=== PATIENT | female | born 1980 | race Caucasian/White ===

== ENCOUNTER → 2019-10-18 | Outpatient (CLI) | payer BC ==
[~2019-10-18] MED LIST: GADOTERATE 7.5 MMOL/15ML VIAL. IVP ONE
[2019-10-18 08:19] LABS: BASO # 0.1 x10^3/uL (0.0-0.2); BASO % 1 % (0-3); EOS # 0.1 x10^3/uL (0.0-0.7); EOS % 1 % (0-3); HEMATOCRIT 42.2 % (36.0-47.0); HEMOGLOBIN 14.2 g/dL (12.0-15.5); LYMPH # 2.1 x10^3/uL (1.0-4.8); LYMPH % 21 % (24-48); MEAN CORPUSCULAR HEMOGLOBIN 32 pg (25-35); MEAN CORPUSCULAR HGB CONC 34 g/dL (31-37); MEAN CORPUSCULAR VOLUME 94 fL (79-100); MONO # 0.5 x10^3/uL (0.0-1.1); MONO % 5 % (0-9); NEUT # 7.5 x10^3/uL (1.8-7.7); NEUT % 73 % (31-73); PLATELET COUNT 219 x10^3/uL (140-400); RED BLOOD COUNT 4.51 x10^6/uL (3.50-5.40); RED CELL DISTRIBUTION WIDTH 13.2 % (11.5-14.5); WHITE BLOOD COUNT 10.4 x10^3/uL (4.0-11.0)
[2019-10-18 08:34] LABS: ALBUMIN/GLOBULIN RATIO 1.1 (1.0-1.7); CALCIUM 8.9 mg/dL (8.5-10.1); CREATININE 0.6 mg/dL (0.6-1.0); GFR 112.5; POTASSIUM 3.9 mmol/L (3.5-5.1); TOTAL BILIRUBIN 0.3 mg/dL (0.2-1.0); TOTAL PROTEIN 7.7 g/dL (6.4-8.2)
[2019-10-18 08:36] LABS: BARBITURATES NEG (NEG); BENZODIAZEPINES NEG (NEG); CANNABINOIDS POS (NEG); COCAINE NEG (NEG); METHADONE NEG (NEG); OPIATES NEG (NEG); PHENCYCLIDINE NEG (NEG)
[2019-10-18 08:44] LABS: AMPHETAMINE/METHAMPHETAMINE NEG (NEG)
--- NOTE | 2019-10-18 09:49 | RAD ---
SKULL 2V History: MRI clearance. History of microvascular decompression. Technique: 2 views of the skull. Comparison: None. Findings: No radiopaque foreign bodies. Normal alignment. No fracture. Impression: 1. No radiopaque foreign bodies. Electronically signed by: Ewdin Lizarraga DO (10/18/2019 9:46 AM) [id number]
--- NOTE | 2019-10-18 11:27 | RAD ---
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 History of trigeminal nerve decompression. Technique: Multiplanar multisequence MRI of the brain without and with contrast. 3-D [id number] MR angiography was performed of the brain. 3-D reconstructions were performed. Determination of any degree of stenosis is based on NASCET criteria. Comparison: Head CT July 22, 2013 Findings: MRI brain: No acute infarct. No intracranial hemorrhage. No mass effect. No hydrocephalus. Postoperative changes right retrosigmoid craniotomy for microvascular decompression. Vascular structure courses within the region of the right trigeminal nerve root entry zone. Signal abnormality within this region may relate to postoperative changes. There is mild mass effect on the root entry zone. No displacement of the trigeminal nerve course. No evidence of cerebellar pontine angle mass or pathologic enhancement. Low-lying cerebellar tonsils with somewhat pointed configuration. Imaged orbits are unremarkable. Left inferior maxillary sinus sinus disease. Minimal right frontal ethmoidal recess and secretions. Mastoid air cells are clear. MRA head: Internal carotid arteries: No stenosis, occlusion or aneurysm. Middle cerebral arteries: No stenosis, occlusion or aneurysm. Anterior cerebral arteries: No stenosis, occlusion or aneurysm. Patent anterior communicating artery. Posterior cerebral arteries: No stenosis, occlusion or aneurysm. Patent bilateral posterior communicating arteries. Basilar artery: No stenosis, occlusion or aneurysm. Vertebral arteries: No stenosis, occlusion or aneurysm. Impression: 1. Prior postoperative changes right retrosigmoid craniotomy for right microvascular decompression. Signal abnormality within the region of the right trigeminal nerve root entry zone with mild mass effect, may relate to postoperative changes. 2. Low-lying cerebellar tonsils. Electronically signed by: Edwin Lizarraga DO (10/18/2019 11:24 AM) [id number]
== END | disposition home or self-care (01) ==
LOC: MRI 07:56
PROVIDERS: ATTEND Psychiatry & Neurology Neurology
DX: G50.0 Trigeminal neuralgia (principal); I99.9 Unspecified disorder of circulatory system
CPT/HCPCS: 36415; 70250; 70544; 70553; 80053; 80307; 84443; 85025; 86141; A9575